=== PATIENT | female | born 1985 | race Caucasian/White ===

== ENCOUNTER → 2018-03-23 | Day surgery (SDC) | payer MEDICAID ==
[~2018-03-23] VITALS: Ht 149.9 cm; Wt 65.4 kg
[~2018-03-23] MED LIST: ACETAMINOPHEN 1000 MG/100 ML 100 ML IV ONE; APRITAB PO; CEPH-459 PO; CHLORHEXIDINE GLUCONATE 2 % 1 PACK (2 CLOTHS) TOPICAL PRN; DEXAMETHASONE SOD PHOS 4 MG/ML VIAL IV ONE; DO NOT ADM ANY ANTICOAGULANT DRUGS PRN; ESCI10TA PO; FUROSEMIDE 40 MG/4 ML VIAL ONE; GENTAMICIN SULFATE 80 MG/2 ML VIAL ONE; GLYCOPYRROLATE 1 MG/5 ML SYRINGE IV PUSH ONE; KETO10 PO; KETOROLAC TROMETHAMINE 30 MG/ML (IVP) VIAL IV PUSH ONE; LACTATED RINGER'S 1000 ML IV PRN; LIDOCAINE HCL 1% PF 5 ML SYRINGE OTHER ONE; METOPROLOL TARTRATE 25 MG TAB PO PRN; NAPR375T4 PO; NEOSTIGMINE 5 MG/5 ML SYRINGE IV PUSH ONE; ONDANSETRON HCL 4 MG/2 ML VIAL IV ONE; ONDANSETRON HCL 4 MG/2 ML VIAL IV PUSH PRN; PERC5TAB12 PO; POVIDONE IODINE 5% (ANTISEPSIS KIT) 4 APPLICATIONS EACH NARE PRN; PROPOFOL 200 MG/20 ML AMP IV ONE; ROCURONIUM INJ 50 MG/5 ML SYRINGE IV PUSH ONE; SODIUM CHLORID 0.9% 500 ML IV PRN; SUMA50TA2 PO; ceFAZolin 1,000 MG/NS 100 ML IV SCH; oxyCODONE/ACETAMINOPHEN 5 MG/325 MG TAB PO PRN
[2018-03-23 08:24] LABS: AUTOMATED NEUTROPHIL # 4.6 TH/MM3 (1.8-7.7); BASOPHIL # 0.1 TH/MM3 (0-0.2); BASOPHIL % 0.8 % (0.0-2.0); EOSINOPHIL # 0.2 TH/MM3 (0-0.4); EOSINOPHIL % 2.9 % (0.0-4.0); HEMATOCRIT 38.8 % (35.0-46.0); HEMOGLOBIN 13.2 GM/DL (11.6-15.3); LYMPH % 34.5 % (9.0-44.0); LYMPHOCYTE # 2.9 TH/MM3 (1.0-4.8); MEAN CELL VOLUME 81.5 FL (80.0-100.0); MEAN CORPUSCULAR HEMOGLOBIN 27.6 PG (27.0-34.0); MEAN CORPUSCULAR HGB CONC 33.9 % (32.0-36.0); MEAN PLATELET VOLUME 8.1 FL (7.0-11.0); MONO % 7.1 % (0.0-8.0); MONOCYTE # 0.6 TH/MM3 (0-0.9); NEUT % 54.7 % (16.0-70.0); PLATELET COUNT 321 TH/MM3 (150-450); RED BLOOD COUNT 4.76 MIL/MM3 (4.00-5.30); RED CELL DISTRIBUTION WIDTH 15.2 % (11.6-17.2); WHITE BLOOD COUNT 8.5 TH/MM3 (4.0-11.0)
--- NOTE | 2018-03-23 10:12 | PD.OP ---
Operative Report Date of Surgery: March 23, 2018 Preoperative Diagnosis: (1) Ureteral calculus, right Postoperative Diagnosis: (1) Ureteral calculus, right Procedure: Cystoscopy, right retrograde pyelogram, right ureteroscopy with laser lithotripsy and insertion of right ureteral catheter Anesthesia: General Surgeon: Nikolai Bermudez Sizing End Bander(s): None Operation and Findings: Indication for procedures: Case of a pleasant 32-year-old female with an approximately 5 mm right distal ureteral calculus who presents today for right ureteroscopy with laser lithotripsy. Operative procedures in detail: Patient was brought to the operating room suite and placed supine on the cystoscopy table. She was then placed under general anesthesia. She was then repositioned in the dorsolithotomy position and prepped and draped in normal sterile fashion. After an appropriate timeout was undertaken I proceeded with cystoscopic evaluation utilizing the rigid cystoscope with the 30 lens and the 20 [place] sheath. Both right and left ureteral orifices were in correct anatomic position. There was clear drainage on the left and no drainage on the right. I then proceeded with passing a sensor 0.035 wire up the patient's right ureter on the both cystoscopic and fluoroscopic guidance without difficulty. The wire was easily negotiated around the obstructing right distal stone. The cystoscope was then withdrawn and the wire secured to a sterile drape with hemostat. The self dilating ureteroscope was then introduced and using a secondary intraluminal wire was able to easily advance the scope up to the point of the obstructing stone. The stone was then broken down into multiple smaller pieces utilizing the 200 m holmium laser fiber. Subsequent to this several of the larger stone fragments were grasped with a 2.4 [place] stone basket and sent off for chemical composition analysis. Repeat ureteroscopy failed to demonstrate any remaining stones. The ureteroscope was then removed and the cystoscope backloaded. A 6 [place] open-ended catheter was advanced over the previously placed wire and the wire withdrawn. A right retrograde pyelogram study was then performed to outline the collecting system. The tip of the ureteral catheter was noted to be within the right renal pelvis. The cystoscope was withdrawn and a 16 [place] 10 cc Wren catheter was placed. The right sided open-ended ureteral catheter was then secured to the Wren via a connector. Both catheters were then placed to gravity drainage. The patient tolerated the procedures without complications and was transferred to the PACU in satisfactory condition. Nikolai Bermudez MD March 23, 2018 10:12
[2018-03-23 12:29] VITALS: BP 118/73; PULSE 62; RESP 18; TEMP 97.4; O2SAT 100
== END | disposition home or self-care (01) ==
LOC: HSDC 06:35
PROVIDERS: ATTEND Urology
DX: N20.1 Calculus of ureter (principal); Z01.818 Encounter for other preprocedural examination
CPT/HCPCS: 00918; 52353; 74420; 82365; 82370; 85025; 88300; C1726; C1769; J0131; J1100; J1885; J2405; J2710; J3010; J1580; J1940